=== PATIENT | male | born 1955 | race Caucasian/White ===

== ENCOUNTER → 2020-11-21 10:36 | Outpatient (CLI) | payer OTHER, SELFPAY ==
--- NOTE | ~2020-11-21 | CT_ITS ---
EXAMINATION: CT abdomen pelvis w con DATE: 11/21/2020 11:17 INDICATION: Upper abdominal pain, blood in stool TECHNIQUE: Computed tomography (CT) of the abdomen and pelvis was performed with 100 cc Omnipaque 350 intravenous contrast. Automated exposure control and iterative reconstruction technique were employe d. Exam dose: 725.59 mGy-cm total exam DLP. COMPARISON: None. FINDINGS: Calcified right lower lobe pulmonary granuloma. Multiple calcified splenic granulomas. The lung bases are clear of infiltrate or consolidation. Normal heart size. No pericardial or pleural effusion. The liver, gallbladder, bile ducts, pancreas and pancreatic duct are unremarkable. Normal adrenal glands. No renal mass lesion or urinary tract calculus or hydroureteronephrosis is evident. There is prostate enlargement and mild diffuse thickening of the urinary bladder wall. Normal caliber of the abdominal aorta. No intraperitoneal or retroperitoneal or pelvic mass lesion or adenopathy or ascites. Minimal sigmoid diverticulosis. No bowel obstruction, bowel wall thickening, pneumatosis or intraperi toneal free air. Bilateral hip osteoarthritis. Diffuse idiopathic skeletal hyperostosis of the thoracic spine. Prominent degenerative disc disease at L5-S1. No suspicious osteolytic or osteoblastic lesions. IMPRESSION: Prostatomegaly Minimal sigmoid diverticulosis Reviewed, dictated and finalized at [facility]. Reviewed, dictated and finalized at [facility].
[2020-11-21 11:01] LABS: Estimated Glomerular Filt Rate > 60
== END ==
PROVIDERS: PCP Family Medicine; Visit Provider Family Medicine
DX: N40.0 Benign prostatic hyperplasia without lower urinary tract symptoms (principal); K57.30 Diverticulosis of large intestine without perforation or abscess without bleeding
CPT/HCPCS: 74177; Q9967

== ENCOUNTER → 2021-04-09 11:58 | Outpatient (CLI) | payer OTHER, SELFPAY ==
--- NOTE | ~2021-04-09 | XR_ITS ---
EXAMINATION: XR lumbar spine 2-3V DATE: 04/09/2021 12:44 INDICATION: Left-sided low back pain. TECHNIQUE: 3 views of lumbar spine standing were obtained. COMPARISON: CT abdomen and pelvis 11/21/2020 FINDINGS: There is 6 degrees levocurvature of lumbar spine. Vertebral body heights are normal. There is mildly decreased disc height at L1-L2 and severely decreased disc height at L5-S1 with endplate re modeling. There is multilevel facet joint osteoarthritis, severe in lower lumbar spine. IMPRESSION: 1. Severe lower lumbar spondylosis. Reviewed, dictated and finalized at [facility]. REGULATOR
--- NOTE | ~2021-04-09 | XR_ITS ---
EXAMINATION: XR hip BI wo pelvis DATE: 04/09/2021 12:43 INDICATION: Osteoarthritis of hips, unspecified. TECHNIQUE: 2 views of right hip and 2 views of left hip weightbearing were obtained. COMPARISON: None. FINDINGS: Bone alignment is normal. No fracture. There is moderate right hip osteoarthritis and sever e left hip osteoarthritis. IMPRESSION: 1. Moderate right hip osteoarthritis and severe left hip osteoarthritis. Reviewed, dictated and finalized at [facility]. [facility] RN
== END ==
PROVIDERS: PCP Family Medicine; Visit Provider Family Medicine
DX: M16.0 Bilateral primary osteoarthritis of hip (principal); M47.896 Other spondylosis, lumbar region
CPT/HCPCS: 72100; 73521